=== PATIENT | male | born 1990 | race Caucasian/White ===

== ENCOUNTER 2016-11-08 23:17 | Inpatient (IN) | payer SELFPAY ==
[~2016-11-08] VITALS: Ht 185.4 cm; Wt 78.7 kg
[~2016-11-08 23:17] MED LIST: PENI500T PO; Z.0.NO CURRENT MEDS
[2016-11-08 23:19] VITALS: BP 127/69; PULSE 78; RESP 16; TEMP 98.8; O2SAT 97
[2016-11-09] VITALS (10 sets, daily range): BP systolic 90–106; BP diastolic 45–106; PULSE 68–90; RESP 16–18; TEMP 96.9–98.2; O2SAT 94–98
[2016-11-09] MEDS ORDERED: SODIUM CHLOR 0.9% 1000 ML INJ 1,000 ML IV ONE ×2 (00:28→02:30)
[2016-11-09] MEDS ORDERED: ONDANSETRON HCL 4 MG/2 ML VIAL IV PUSH ONE (00:30)
[2016-11-09] MEDS ORDERED: SODIUM CHLORIDE 0.9% FLUSH 10 ML FLUSH IVF PRN ×2 (00:30→03:00)
--- NOTE | 2016-11-09 00:52 | RADRPT ---
EXAM DATE/TIME: 11/09/2016 00:31 [facility] COMPARISON: No previous studies available for comparison. INDICATIONS : [place]. MEDICAL HISTORY : None. SURGICAL HISTORY : None. ENCOUNTER: Initial ACUITY: 1 day PAIN SCORE: 0/10 LOCATION: Bilateral chest FINDINGS: A single view of the chest demonstrates the lungs to be symmetrically aerated without evidence of mas s, infiltrate or effusion. The cardiomediastinal contours are unremarkable. Osseous structures are intact. CONCLUSION: No acute disease. Kris Carbajal MD on November 09, 2016 at 0:50 Board Certified Radiologist. This report was verified electronically.
[2016-11-09 01:07] LABS: AUTOMATED NEUTROPHIL # 14.3 TH/MM3 (1.8-7.7); BASOPHIL % 0.2 % (0.0-2.0); HEMATOCRIT 56.7 % (39.0-51.0); HEMO FLAGS DIFF FINAL; LYMPHOCYTE # 0.8 TH/MM3 (1.0-4.8); MEAN CORPUSCULAR HEMOGLOBIN 29.2 PG (27.0-34.0); MONO % 4.1 % (0.0-8.0); NEUT % 90.7 % (16.0-70.0); PLATELET COUNT 292 TH/MM3 (150-450); RED BLOOD COUNT 6.59 MIL/MM3 (4.50-5.90); RED CELL DISTRIBUTION WIDTH 13.4 % (11.6-17.2); WHITE BLOOD COUNT 15.8 TH/MM3 (4.0-11.0)
[2016-11-09 01:17] LABS: BACTERIA, URINE RARE /hpf; BLOOD, URINE SMALL (NEG); COMMENT (UR) CULTURE INDICATED; CULTURE IF INDICATED CULTURE INDICATED; GLUCOSE,URINE TRACE mg/dL (NEG); GRANULAR CAST, URINE 26 /lpf; HYALINE CAST, URINE 81 /lpf (RARE); KETONE, URINE TRACE mg/dL (NEG); MUCUS URINE FEW /lpf (OCC); NITRITE,URINE NEG (NEG); RENAL EPITHELIAL CELLS <1 /hpf; SQUAMOUS EPITHELIAL CELL URINE 2 /hpf (0-5); TRANSITIONAL EPI CELLS, URINE 1 /hpf; URINE COLOR YELLOW (YELLW/STRAW); WAXY CAST, URINE 4 /lpf
[2016-11-09 01:33] LABS: ALT (GPT) 47 U/L (12-78); ANION GAP 16 MEQ/L (5-15); AST (GOT) 65 U/L (15-37); BICARBONATE 24.1 MEQ/L (21.0-32.0); BLOOD UREA NITROGEN 32 MG/DL (7-18); CHLORIDE 95 MEQ/L (98-107); GLOMERULAR FILTRATION RATE 16 ML/MIN (>89); POTASSIUM 4.2 MEQ/L (3.5-5.1); SODIUM (NA) 135 MEQ/L (136-145)
[2016-11-09 01:35] LABS: ALKALINE PHOSPHATASE 81 U/L (45-117); TOTAL BILIRUBIN ADULT 0.9 MG/DL (0.2-1.0)
[2016-11-09] MEDS ORDERED: NALOXONE HCL 0.4 MG/ML AMP IV PUSH PRN (03:00)
[2016-11-09] MEDS ORDERED: SODIUM CHLORIDE 0.9% FLUSH 10 ML FLUSH IV FLUSH PRN (03:00)
--- NOTE | 2016-11-09 03:03 | RADRPT ---
EXAM DATE/TIME: 11/09/2016 02:38 [facility] COMPARISON: CT ABDOMEN & PELVIS W/O CONTRAST, June 06, 2010, 20:14. INDICATIONS : Vomiting today. ORAL CONTRAST: No oral contrast ingested. RADIATION DOSE: 6.67 CTDIvol (mGy) MEDICAL HISTORY : Renal calculi. Asthma. SURGICAL HISTORY : None. ENCOUNTER: Initial ACUITY: 1 day PAIN SCALE: 0/10 LOCATION: Bilateral abdomen TECHNIQUE: Volumetric scanning of the abdomen and pelvis was performed. Using automated exposure control and ad justment of the mA and/or kV according to patient size, radiation dose was kept as low as reasonably achievable to obtain optimal diagnostic quality images. DICOM format image data is available electro nically for review and comparison. FINDINGS: Lung bases are clear. No acute findings in the liver and spleen. Stable calcifications compared to 20 11. Adrenals, and kidneys and pancreas demonstrate no acute findings. No calcified gallstones. [place] h mildly distended. No free fluid or free air. No bowel obstruction. No adenopathy. Appendix appears normal. CONCLUSION: 1. No acute findings. Remote granulomatous disease in the liver and spleen, stable. No obstruction, f ree fluid or free air. No hydronephrosis or evidence for obstructive uropathy. Kris Carbajal MD on November 09, 2016 at 2:52 Board Certified Radiologist. This report was verified electronically.
--- NOTE | 2016-11-09 03:12 | HHI.HP ---
[facility] No Primary Care Physician Admission Diagnosis luke; dehydration Diagnoses: Travel History International Travel<30 Days: No Contact w/Intl Traveler <30 Da: No Traveled to Known Affected Are: No History of Present Illness History from patient, ER physician communication, and review of medical records. Patient reported that yesterday, he went to work around 7 AM. He stated he was drinking Gatorade all through the work and starting around 10 AM, he started vomiting. He stated the vomiting was continuous and he just could not stop it. Every time he takes any sip, the drink would come back right up. He denies having any black color vomit or bright red color. He states it was whatever the color of the food or the Gatorade is. He also reports of abdominal pain but this only happens after several bouts of vomiting. This also did not last long. He reports that he got home around 1 PM as soon as he got home, he was drinking water and he also started having headaches. No documented fever. No neck rigidity. Reports of sweating a lot though. Denies any other sick contacts. Reports he did not drink and eat all day long including breakfast. His last meal was the day prior, Saturday dinner. He states he only ate homemade food on one staple dinner and lunch. Patient reports prior history of renal stones a few years ago. He has had asthma history as well. He denies any shortness of breath apart from occasional episodes after throwing up quite a bit. Apart from the above, patient denies any other constitutional symptoms in the past few days to weeks. He is generally very healthy. Specifically, he denies any chest pain/palpitations/shortness of breath/focal weakness/dizziness/ syncopal episodes. He denies any hematemesis/hematochezia/melena/hematuria. Denies any nausea/vomiting/diarrhea/urinary burning or pain on urination and a previous days. Stated his symptoms only started yesterday. 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 He reports he started this work only a few days ago. He mentions that every time he comes back from work, he does have left flank pain. He was wondering whether he strained a muscle. Review of Systems Except as stated in HPI: all other systems reviewed are Neg Past Family Social History Past Medical History asthma kidney stones Past Surgical History none Allergies: Coded Allergies: No Known Allergies (Verified , 11/08/16) Family History mom- maybe htn Social History smokes 3- 5 cigarettes a day drink etoh only once in a while smoke marijuana yesterday no iv drugs, no cocaine , nothing else Physical Exam Vital Signs Vital Signs Date Time Temp Pulse Resp B/P (MAP) Pulse Ox O2 Delivery O2 Flow Rate FiO2 11/09/16 01:02 98 Room Air 11/08/16 23:19 98.8 78 16 127/69 (88) 97 Room Air Physical Exam GENERAL: This is a well-nourished, well-developed patient, in no apparent distress. SKIN: No rashes, ecchymoses or lesions. Cool and dry. HEAD: Atraumatic. Normocephalic. No temporal or scalp tenderness. EYES:. No scleral icterus. No injection or drainage. ENT: Nose without bleeding, purulent drainage or septal hematoma. Airway patent. NECK: Trachea midline. No JVD CARDIOVASCULAR: Regular rate and rhythm without murmurs, gallops, or rubs. RESPIRATORY: Clear to auscultation. Breath sounds equal bilaterally. No wheezes , rales, or rhonchi. GASTROINTESTINAL: Abdomen soft, non-tender, nondistended. No guarding. MUSCULOSKELETAL: Extremities without clubbing, cyanosis, or edema. No calf tenderness. NEUROLOGICAL: Awake and alert. Motor and sensory grossly within normal limits. Normal speech. Laboratory Laboratory Tests Test 11/09/16 00:45 White Blood Count 15.8 Red Blood Count 6.59 Hemoglobin 19.3 Hematocrit 56.7 Mean Corpuscular Volume 86.0 Mean Corpuscular Hemoglobin 29.2 Mean Corpuscular Hemoglobin Concent 34.0 Red Cell Distribution Width 13.4 Platelet Count 292 Mean Platelet Volume 9.2 Neutrophils (%) (Auto) 90.7 Lymphocytes (%) (Auto) 5.0 Monocytes (%) (Auto) 4.1 Eosinophils (%) (Auto) 0.0 Basophils (%) (Auto) 0.2 Neutrophils # (Auto) 14.3 Lymphocytes # (Auto) 0.8 Monocytes # (Auto) 0.7 Eosinophils # (Auto) 0.0 Basophils # (Auto) 0.0 CBC Comment DIFF FINAL Differential Comment Urine Color YELLOW Urine Turbidity CLOUDY Urine pH 5.0 Urine Specific [place] 1.019 Urine Protein 30 Urine Glucose (UA) TRACE Urine Ketones TRACE Urine Occult Blood SMALL Urine Nitrite NEG Urine Bilirubin NEG Urine Urobilinogen 2.0 Urine Leukocyte Esterase TRACE Urine RBC 5 Urine WBC 10 Urine Squamous Epithelial Cells 2 Urine Transitional Epithelial Cells 1 Urine Renal Epithelial Cells <1 Urine Amorphous Sediment RARE Urine Bacteria RARE Urine Hyaline Casts 81 Urine Granular Casts 26 Urine Waxy Casts 4 Urine Mucus FEW Microscopic Urinalysis Comment CULTURE INDICATED Blood Urea Nitrogen 32 Creatinine 4.49 Random Glucose 132 Total Protein 10.2 Albumin 5.9 Calcium Level 10.6 Alkaline Phosphatase 81 Aspartate Amino Transf (AST/SGOT) 65 Alanine Aminotransferase (ALT/SGPT) 47 Total Bilirubin 0.9 Sodium Level 135 Potassium Level 4.2 Chloride Level 95 Carbon Dioxide Level 24.1 Anion Gap 16 Estimat Glomerular Filtration Rate 16 Lipase 84 Date/Time Source Procedure Growth Status 11/09/16 00:45 Urine Random Urine Urine Culture Pending Received Result Diagram: 11/09/16 0045 11/09/16 0045 Imaging Last 48 hours Impressions Chest X-Ray 11/09/16 0028 Signed Impressions: Service Date/Time: Wednesday, November 09, 2016 00:31 - CONCLUSION: No acute disease. Kris Carbajal MD Abdomen/Pelvis CT 11/09/16 0000 Signed Impressions: Service Date/Time: Wednesday, November 09, 2016 02:38 - CONCLUSION: 1. No acute findings. Remote granulomatous disease in the liver and spleen, stable. No obstruction, free fluid or free air. No hydronephrosis or evidence for obstructive uropathy. Kris Carbajal MD Caprini VTE Risk Assessment Caprini VTE Risk Assessment: Mod/High Risk (score >= 2) Caprini Risk Assessment Model Point Value = 1 Point Value = 2 Point Value = 3 Point Value = 5 Age 41-60 Minor surgery BMI > 25 kg/m2 Swollen legs Varicose veins or History of unexplained or recurrent spontaneous Oral contraceptives or hormone replacement Sepsis (< 1 month) Serious lung disease, including pneumonia (< 1 month) Abnormal pulmonary function Acute myocardial infarction Congestive heart failure (< 1 month) History of inflammatory bowel disease Medical patient at bed rest Age 61-74 Arthroscopic surgery Major open surgery (> 45 min) Laparoscopic surgery (> 45 min) Malignancy Confined to bed (> 72 hours) Immobilizing plaster cast Central venous access Age >= 75 History of VTE Family history of VTE Factor V Leiden Prothrombin [id number] Lupus anticoagulant Anticardiolipin antibodies Elevated serum homocysteine Heparin-induced thrombocytopenia Other congenital or acquired thrombophilia Stroke (< 1 month) Elective arthroplasty Hip, pelvis, or leg fracture Acute spinal cord injury (< 1 month) Prophylaxis Regimen Total Risk Factor Score Risk Level Prophylaxis Regimen 0-1 Low Early ambulation 2 Moderate Order ONE of the following: *Sequential Compression Device (SCD) *Heparin 5000 units SQ BID 3-4 Higher Order ONE of the following medications: *Heparin 5000 units SQ TID *Enoxaparin/Lovenox 40 mg SQ daily (WT < 150 kg, CrCl > 30 mL/min) *Enoxaparin/Lovenox 30 mg SQ daily (WT < 150 kg, CrCl > 10-29 mL/min) *Enoxaparin/Lovenox 30 mg SQ BID (WT < 150 kg, CrCl > 30 mL/min) AND/OR *Sequential Compression Device (SCD) 5 or more Highest Order ONE of the following medications: *Heparin 5000 units SQ TID (Preferred with Epidurals) *Enoxaparin/Lovenox 40 mg SQ daily (WT < 150 kg, CrCl > 30 mL/min) *Enoxaparin/Lovenox 30 mg SQ daily (WT < 150 kg, CrCl > 10-29 mL/min) *Enoxaparin/Lovenox 30 mg SQ BID (WT < 150 kg, CrCl > 30 mL/min) AND *Sequential Compression Device (SCD) Assessment and Plan Assessment and Plan Impression: Intractable nausea/vomiting Acute renal failure secondary to dehydration. Need to rule out rhabdomyolysis given patient's nature of his job including lifting heavy objects which she started just a few days ago. Severe dehydration Hemoconcentration secondary to dehydration Gastritis History of asthma History of renal stones Plan: Nausea control. Aggressive IV hydration. Will follow-up renal function and repeat BMP in a.m. Check CPK. Add on to blood in lab. We'll follow CBC to make sure resolution. Doubt that his leukocytosis from infectious etiology. This is hemoconcentration. CT of the abdomen without contrast was done. This is personally reviewed. There is no evidence of renal stones. No other acute pathology. If renal function does not improve with IV hydration, we will need to consider renal sono/possible nephrology consult. DVT prophylaxis with ambulation. GI prophylaxis with pantoprazole. Discussed Condition With patient, ER MD, nursing staff Physician Certification 2 Midnight Certification Type: Admission for Inpatient Services Order for Inpatient Services The services are ordered in accordance with Medicare regulations or non- Medicare payer requirements, as applicable. In the case of services not specified as inpatient-only, they are appropriately provided as inpatient services in accordance with the 2-midnight benchmark. Estimated LOS (days): 2 days is the estimated time the patient will need to remain in the hospital, assuming treatment plan goals are met and no additional complications. Post-Hospital Plan: Home Steve Thomas MD Nov 09, 2016 03:12
[2016-11-09] MEDS: SODIUM CHLOR 0.9% 1000 ML INJ 1,000 ML IV SCH ×3 (03:30→18:12)
[2016-11-09 06:52] LABS: CKMB 11.3 NG/ML (0.5-3.6)
[2016-11-09] MEDS ORDERED: SODIUM CHLORIDE 0.9% FLUSH 10 ML FLUSH IV FLUSH SCH (09:00)
[2016-11-09] MEDS: SODIUM CHLORIDE 0.9% FLUSH 10 ML FLUSH IV FLUSH SCH ×2 (09:14→22:10)
[2016-11-09 09:15] LABS: BASOPHIL # 0.1 TH/MM3 (0-0.2); BASOPHIL % 0.5 % (0.0-2.0); EOSINOPHIL % 0.1 % (0.0-4.0); HEMATOCRIT 44.1 % (39.0-51.0); HEMO FLAGS DIFF FINAL; LYMPH % 9.9 % (9.0-44.0); LYMPHOCYTE # 1.6 TH/MM3 (1.0-4.8); MEAN CELL VOLUME 86.1 FL (80.0-100.0); MEAN CORPUSCULAR HEMOGLOBIN 29.2 PG (27.0-34.0); MONO % 7.4 % (0.0-8.0); NEUT % 82.1 % (16.0-70.0); PLATELET COUNT 245 TH/MM3 (150-450); RED BLOOD COUNT 5.12 MIL/MM3 (4.50-5.90); RED CELL DISTRIBUTION WIDTH 13.2 % (11.6-17.2); WHITE BLOOD COUNT 15.8 TH/MM3 (4.0-11.0)
[2016-11-09 09:56] LABS: BICARBONATE 25.2 MEQ/L (21.0-32.0); POTASSIUM 3.4 MEQ/L (3.5-5.1)
[2016-11-09] MEDS ORDERED: PANTOPRAZOLE SOD 40 MG DELAYED RELEASE TAB PO ONE (10:30)
--- NOTE | 2016-11-09 12:03 | HHI.PR ---
Subjective Remarks Follow-up for intractable emesis and acute renal failure Patient stated that emesis has improved. He has not had any episodes since he was being treated. Patient stated that he does do a lot of lifting and is outside a lot. He stated that he drinks Gatorade and a little water. He stated that he felt he was drinking enough. Patient also uses marijuana about 3 times a week. He stated that he smokes marijuana. He stated that he has never had problems with marijuana previously causing him any abdominal issues. Objective Vitals Vital Signs Date Time Temp Pulse Resp B/P (MAP) Pulse Ox O2 Delivery O2 Flow Rate FiO2 11/09/16 08:00 97.3 79 16 97/45 (62) 94 11/09/16 04:17 90 11/09/16 04:02 96.9 90 17 104/61 (75) 95 11/09/16 03:54 11/09/16 03:20 98 21 11/09/16 01:02 98 Room Air 11/08/16 23:19 98.8 78 16 127/69 (88) 97 Room Air I/O 11/08/16 11/08/16 11/08/16 11/09/16 11/09/16 11/09/16 07:00 15:00 23:00 07:00 15:00 23:00 Intake Total 1490 ml Balance 1490 ml Intake Oral 240 ml IV Total 1250 ml # Voids 1 # Bowel Movements 0 Result Diagram: 11/09/16 0845 11/09/16 0845 Objective Remarks GENERAL: in NAD CARDIOVASCULAR: Regular rate and rhythm without murmurs, gallops, or rubs. RESPIRATORY: Breath sounds equal bilaterally. No accessory muscle use. GASTROINTESTINAL: Abdomen soft, non-tender, nondistended. Medications and IVs Current Medications Ondansetron HCl (Zofran Inj) 4 mg ONCE ONCE IV PUSH Last administered on 01:00; Start 11/09/16 at 00:30; Stop 11/09/16 at 00:31; Status DC Sodium Chloride 1,000 ml @ 1,000 mls/hr Q1H ONCE IV Last administered on 01:00; Start 11/09/16 at 00:28; Stop 11/09/16 at 01:27; Status DC Sodium Chloride (NS Flush) 2 ml UNSCH PRN IVF FLUSH AFTER USING IV ACCESS; Start 11/09/16 at 00:30; Stop 11/09/16 at 03:27; Status DC Sodium Chloride 1,000 ml @ 999 mls/hr BOLUS ONCE IV Last administered on 11/09 02:51; Start 11/09/16 at 02:30; Stop 11/09/16 at 03:30; Status DC Sodium Chloride (NS Flush) 2 ml BID IV FLUSH ; Start 11/09/16 at 09:00; Stop at 09:00; Status DC Sodium Chloride (NS Flush) 2 ml UNSCH PRN IVF FLUSH AFTER USING IV ACCESS; Start 11/09/16 at 03:00; Stop 11/09/16 at 03:27; Status DC Sodium Chloride 1,000 ml @ 150 mls/hr Q6H40M IV Last administered on 03:30; Start 11/09/16 at 02:54 Sodium Chloride (NS Flush) 2 ml UNSCH PRN IV FLUSH FLUSH AFTER USING IV ACCESS ; Start 11/09/16 at 03:00 Sodium Chloride (NS Flush) 2 ml BID IV FLUSH Last administered on 11/09/16 09: 14; Start 11/09/16 at 09:00 Naloxone HCl (Narcan Inj) 0.4 mg UNSCH PRN IV PUSH SEE LABEL COMMENTS; Start at 03:00 Influenza Virus Vaccine (Flu (Quadrivalent) Vaccine Inj) 0.5 ml ONCE ONCE IM ; Start 11/10/16 at 09:00; Stop 11/10/16 at 09:01 Pantoprazole Sodium (Protonix) 40 mg DAILY PO ; Start 11/10/16 at 09:00 Pantoprazole Sodium (Protonix) 40 mg ONCE ONCE PO ; Start 11/09/16 at 10:30; Stop 11/09/16 at 10:31; Status DC A/P Assessment and Plan 26-year-old male who presented with intractable emesis Intractable emesis -May be secondary to acute renal failure. Seemed to resolve with improvement in renal function. Can also be due to marijuana, but this has never caused him problem in the past. Educated on marijuana use and that it can cause a cyclic type of emesis and abdominal pain. -Continue with treating underlying cause since it is improving symptoms. Acute renal failure -Secondary to severe dehydration and rhabdomyolysis. -Improving. -We will increase IV fluids to 150 cc/h. -Encourage oral intake. -Continue with strict ins and outs. -Avoid nephrotoxins. -Continue to monitor creatinine. Hemoconcentration secondary to dehydration -Seemed to resolve. Abdominal pain -CT scan of abdomen negative. -Most likely secondary to continuous emesis. This seems to have resolved with improvement in emesis. -Continue to monitor. DVT prophylaxis with ambulation. GI prophylaxis with pantoprazole. Cayla Isidro MD Nov 09, 2016 12:03
[2016-11-10 00:17] VITALS: BP 90/50; PULSE 64; RESP 18; TEMP 97.2; O2SAT 97
[2016-11-10] MEDS: SODIUM CHLOR 0.9% 1000 ML INJ 1,000 ML IV SCH ×3 (00:23→12:31)
[2016-11-10 04:17] VITALS: BP 92/50; PULSE 71; RESP 17; TEMP 96.7; O2SAT 96
[2016-11-10 06:23] LABS: HEMATOCRIT 40.9 % (39.0-51.0); MEAN CELL VOLUME 87.6 FL (80.0-100.0); MEAN CORPUSCULAR HEMOGLOBIN 29.5 PG (27.0-34.0); MEAN CORPUSCULAR HGB CONC 33.7 % (32.0-36.0); PLATELET COUNT 194 TH/MM3 (150-450); RED BLOOD COUNT 4.67 MIL/MM3 (4.50-5.90); RED CELL DISTRIBUTION WIDTH 13.1 % (11.6-17.2); REVIEW FLAG FINAL
[2016-11-10 06:58] LABS: BICARBONATE 27.7 MEQ/L (21.0-32.0); POTASSIUM 4.1 MEQ/L (3.5-5.1)
[2016-11-10 08:00] VITALS: BP 96/60; PULSE 67; RESP 18; TEMP 97.3; O2SAT 97
[2016-11-10] MEDS: SODIUM CHLORIDE 0.9% FLUSH 10 ML FLUSH IV FLUSH SCH (08:26)
[2016-11-10] MEDS ORDERED: INFLUENZA VIRUS VACCINE (QUADRIVALENT) 0.5 ML SYR IM ONE (09:00)
[2016-11-10] MEDS ORDERED: PANTOPRAZOLE SOD 40 MG DELAYED RELEASE TAB PO SCH (09:00)
--- NOTE | 2016-11-10 11:11 | HHI.DCPOC ---
Discharge Care Plan Diagnosis: (1) Muscle spasm (2) Acute renal failure (ARF) (3) Rhabdomyolysis Goals to Promote Your Health * To prevent worsening of your condition and complications * To maintain your health at the optimal level Directions to Meet Your Goals Take your medications as prescribed Follow your dietary instruction Follow activity as directed Keep your appointments as scheduled Take your immunizations and boosters as scheduled If your symptoms worsen call your PCP, if no PCP go to Urgent Care Center or Emergency Room Smoking is Dangerous to Your Health. Avoid second hand smoke Call the 24-hour hour crisis hotline for domestic abuse at Cayla Isidro MD Nov 10, 2016 11:11
--- NOTE | 2016-11-10 11:11 | HHI.DS ---
Discharge Summary Admission Date Nov 09, 2016 at 02:56 Discharge Date: Nov 10, 2016 Admitting Diagnosis luke; dehydration (1) Acute renal failure (ARF) ICD Code: N17.9 - Acute kidney failure, unspecified Diagnosis: Principal (2) Rhabdomyolysis ICD Code: M62.82 - Rhabdomyolysis Diagnosis: Principal (3) Muscle spasm ICD Code: M62.838 - Other muscle spasm Diagnosis: Secondary Procedures NONE Brief History - From Admission Patient reported that yesterday, he went to work around 7 AM. He stated he was drinking Gatorade all through the work and starting around 10 AM, he started vomiting. He stated the vomiting was continuous and he just could not stop it. Every time he takes any sip, the drink would come back right up. He denies having any black color vomit or bright red color. He states it was whatever the color of the food or the Gatorade is. He also reports of abdominal pain but this only happens after several bouts of vomiting. This also did not last long. He reports that he got home around 1 PM as soon as he got home, he was drinking water and he also started having headaches. No documented fever. No neck rigidity. Reports of sweating a lot though. Denies any other sick contacts. Reports he did not drink and eat all day long including breakfast. His last meal was the day prior, Saturday dinner. He states he only ate homemade food on one staple dinner and lunch. Patient reports prior history of renal stones a few years ago. He has had asthma history as well. He denies any shortness of breath apart from occasional episodes after throwing up quite a bit. Apart from the above, patient denies any other constitutional symptoms in the past few days to weeks. He is generally very healthy. Specifically, he denies any chest pain/palpitations/shortness of breath/focal weakness/dizziness/ syncopal episodes. He denies any hematemesis/hematochezia/melena/hematuria. Denies any nausea/vomiting/diarrhea/urinary burning or pain on urination and a previous days. Stated his symptoms only started yesterday. 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 He reports he started this work only a few days ago. He mentions that every time he comes back from work, he does have left flank pain. He was wondering whether he strained a muscle. CBC/BMP: 11/10/16 0534 11/10/16 0534 Significant Findings Laboratory Tests Test 11/09/16 00:45 11/09/16 08:45 11/10/16 05:34 White Blood Count 15.8 TH/MM3 (4.0-11.0) 15.8 TH/MM3 (4.0-11.0) Red Blood Count 6.59 MIL/MM3 (4.50-5.90) Hemoglobin 19.3 GM/DL (13.0-17.0) Hematocrit 56.7 % (39.0-51.0) Neutrophils (%) (Auto) 90.7 % (16.0-70.0) 82.1 % (16.0-70.0) Lymphocytes (%) (Auto) 5.0 % (9.0-44.0) Neutrophils # (Auto) 14.3 TH/MM3 (1.8-7.7) 13.0 TH/MM3 (1.8-7.7) Lymphocytes # (Auto) 0.8 TH/MM3 (1.0-4.8) Urine Turbidity CLOUDY (CLEAR) Urine Protein 30 mg/dL (NEG-TRACE) Urine Ketones TRACE mg/dL (NEG) Urine Occult Blood SMALL (NEG) Urine Leukocyte Esterase TRACE (NEG) Urine RBC 5 /hpf (0-3) Urine WBC 10 /hpf (0-5) Urine Bacteria RARE /hpf (NONE) Urine Mucus FEW /lpf (OCC) Blood Urea Nitrogen 32 MG/DL (7-18) 30 MG/DL (7-18) 19 MG/DL (7-18) Creatinine 4.49 MG/DL (0.60-1.30) 2.28 MG/DL (0.60-1.30) Random Glucose 132 MG/DL (74-106) 127 MG/DL (74-106) Total Protein 10.2 GM/DL (6.4-8.2) Albumin 5.9 GM/DL (3.4-5.0) Calcium Level 10.6 MG/DL (8.5-10.1) 8.2 MG/DL (8.5-10.1) 7.9 MG/DL (8.5-10.1) Aspartate Amino Transf (AST/SGOT) 65 U/L (15-37) Sodium Level 135 MEQ/L (136-145) Chloride Level 95 MEQ/L (98-107) 111 MEQ/L (98-107) Anion Gap 16 MEQ/L (5-15) 4 MEQ/L (5-15) Estimat Glomerular Filtration Rate 16 ML/MIN (>89) 35 ML/MIN (>89) Total Creatine Kinase 2137 U/L (39-308) Creatine Kinase MB 11.3 NG/ML (0.5-3.6) Monocytes # (Auto) 1.2 TH/MM3 (0-0.9) Potassium Level 3.4 MEQ/L (3.5-5.1) Imaging Last Impressions Chest X-Ray 11/09/16 0028 Signed Impressions: Service Date/Time: Wednesday, November 09, 2016 00:31 - CONCLUSION: No acute disease. Kris Carbajal MD Abdomen/Pelvis CT 11/09/16 0000 Signed Impressions: Service Date/Time: Wednesday, November 09, 2016 02:38 - CONCLUSION: 1. No acute findings. Remote granulomatous disease in the liver and spleen, stable. No obstruction, free fluid or free air. No hydronephrosis or evidence for obstructive uropathy. Kris Carbajal MD PE at Discharge GENERAL: in NAD CARDIOVASCULAR: Regular rate and rhythm without murmurs, gallops, or rubs. RESPIRATORY: Breath sounds equal bilaterally. No accessory muscle use. GASTROINTESTINAL: Abdomen soft, non-tender, nondistended. Pt update on day of discharge Follow-up for acute renal failure intractable emesis Patient stated he is feeling well. Deny any nausea vomiting. Denies any abdominal pain. He did have some muscle pain on his left side. Otherwise he has no other complaints. Hospital Course 26-year-old male who presented with intractable emesis Intractable emesis -May be secondary to acute renal failure. Seemed to resolve with improvement in renal function. Can also be due to marijuana, but this has never caused him problem in the past. Educated on marijuana use and that it can cause a cyclic type of emesis and abdominal pain. -Continue with treating underlying cause since it is improving symptoms. This resolved quickly. Acute renal failure -Secondary to severe dehydration and rhabdomyolysis. -Resolved after aggressive IV fluid resuscitation. Hemoconcentration secondary to dehydration -Resolved after given IV fluids. Abdominal pain -CT scan of abdomen negative. -Most likely secondary to continuous emesis. This seems to have resolved with improvement in emesis. -Continue to monitor. Muscle spasms -Patient okay use heating pad. Pt Condition on Discharge: Good Discharge Disposition: Discharge Home Discharge Time: <= 30 minutes Discharge Instructions DIET: Follow Instructions for: As Tolerated, No Restrictions Additional Diet Instructions: remember to keep hydrated with water especially when working outstide. Activities you can perform: Regular-No Restrictions Follow up Referrals: PCP Follow-up - 1 Week Medication Profile: No Active Prescriptions or Reported Meds Cayla Isidro MD Nov 10, 2016 11:11
--- NOTE | 2016-11-22 05:28 | PD ---
HPI Chief Complaint: GI Complaint Time Seen by Provider: 00:28 Travel History International Travel<30 days: No Contact w/Intl Traveler<30days: No Traveled to known affect area: No History of Present Illness HPI 26-year-old male presents to the emergency department for evaluation of dehydration. Patient states symptoms have worsened over the past day. Patient denies fever or chills. Patient does complain of myalgias and arthralgias. Patient states multiple episodes of vomiting and inability to tolerate any oral hydration. Patient had been drinking Gatorade heavily. No hematemesis no coffee-ground emesis no melena no hematochezia no abdominal pain except some mild discomfort with vomiting. Patient has prior history of asthma and kidney stones. Patient does smoke cigarettes. Rarely drinks alcohol. Patient denies other concerns or complaints and rates pain as minimal. No dietary indiscretion no well water ingestion or foreign travel. PFSH Past Medical History Narrative Medical Asthma kidney stones migraines tobacco use alcohol use marijuana use nursing notes reviewed Arthritis: No Asthma: Yes Autoimmune Disease: No Anxiety: No Depression: No Heart Rhythm Problems: No Cancer: No Cardiovascular Problems: No High Cholesterol: No Chemotherapy: No Chest Pain: No Congestive Heart Failure: No COPD: No Cerebrovascular Accident: No Diabetes: No Patient Takes Glucophage: No Diminished Hearing: No Endocrine: No GERD: No Genitourinary: Yes Hiatal Hernia: No Immune Disorder: No Kidney Stones: Yes Musculoskeletal: Yes Neurologic: Yes Psychiatric: No Reproductive: No Respiratory: Yes Immunizations Current: Yes Migraines: Yes Radiation Therapy: No Renal Failure: No Seizures: No Sickle Cell Disease: No Sleep Apnea: No Thyroid Disease: No Ulcer: No ?: Not Past Surgical History Abdominal Surgery: No AICD: No Arteriovenous Shunt: No Cardiac Surgery: No Ear Surgery: No Endocrine Surgery: No Eye Surgery: No Genitourinary Surgery: No Gynecologic Surgery: No Insulin Pump: No Joint Replacement: No Oral Surgery: No Pacemaker: No Thoracic Surgery: No Social History Alcohol Use: Yes (OCCASIONALLY) Tobacco Use: Yes (5 CIGARETTES A DAY) Substance Use: Yes (MARIJUANA) Allergies-Medications (Allergen,Severity, Reaction): Coded Allergies: No Known Allergies (Verified , 11/08/16) Reported Meds & Prescriptions Reported Meds & Active Scripts Active No Active Prescriptions or Reported Medications Review of Systems Except as stated in HPI: all other systems reviewed are Neg General / Constitutional: No: Fever, Chills HENT: No: Congestion Cardiovascular: No: Chest Pain or Discomfort Respiratory: No: Shortness of Breath Gastrointestinal: Positive: Nausea, Vomiting, No: Abdominal Pain Genitourinary: No: Flank Pain Musculoskeletal: No: Limited ROM Skin: No Rash Neurologic: No: Weakness Psychiatric: No: Anxiety Hematologic/Lymphatic: No: Lymph Node Enlargement Physical Exam Narrative GENERAL: Well-developed well-nourished male in no acute distress no respiratory distress SKIN: Warm and dry. HEAD: Normocephalic. EYES: No scleral icterus. No injection or drainage. NECK: Supple, trachea midline. No JVD or lymphadenopathy. CARDIOVASCULAR: Regular rate and rhythm without murmurs, gallops, or rubs. RESPIRATORY: Breath sounds equal bilaterally. No accessory muscle use. GASTROINTESTINAL: Abdomen soft, non-tender, nondistended. MUSCULOSKELETAL: No cyanosis, or edema. BACK: Nontender without obvious deformity. No CVA tenderness. Data Data Orders Orders Complete Blood Count With Diff (11/09/16 00:28) Comprehensive Metabolic Panel (11/09/16 00:28) Urinalysis - C+S If Indicated (11/09/16 00:28) Lipase (11/09/16 00:28) Iv Access Insert/Monitor (11/09/16 00:28) Ecg Monitoring (11/09/16 00:28) Oximetry (11/09/16 00:28) Ondansetron Inj (Zofran Inj) (11/09/16 00:30) Sodium Chlor 0.9% 1000 Ml Inj (Ns 1000 M (11/09/16 00:28) Sodium Chloride 0.9% Flush (Ns Flush) (11/09/16 00:30) Chest, Single Ap (11/09/16 00:28) Urine Culture (11/09/16 00:45) Ct Abd/Pel W/O Iv Contrast (11/09/16 ) Sodium Chlor 0.9% 1000 Ml Inj (Ns 1000 M (11/09/16 02:30) Admit Order (Ed Use Only) (11/09/16 ) ^ Saline Lock (11/09/16 02:54) Resp Oxygen [place] C Titrat 1-4 L (11/09/16 ) Notify Dr: Other (11/09/16 02:54) Sodium Chloride 0.9% Flush (Ns Flush) (11/09/16 09:00) Sodium Chloride 0.9% Flush (Ns Flush) (11/09/16 03:00) Admit To Inpatient (11/09/16 ) Vital Signs (Adult) Q4H (11/09/16 02:54) Activity Oob With Assistance (11/09/16 02:54) Soft Drink Powder Mixer / Telemetry .CONTINUOUS (11/09/16 02:54) Diet Heart Healthy (11/09/16 Breakfast) Sodium Chlor 0.9% 1000 Ml Inj (Ns 1000 M (11/09/16 02:54) Sodium Chloride 0.9% Flush (Ns Flush) (11/09/16 03:00) Sodium Chloride 0.9% Flush (Ns Flush) (11/09/16 09:00) Basic Metabolic Panel (Bmp) (11/09/16 06:00) Complete Blood Count With Diff (11/09/16 06:00) Naloxone Inj (Narcan Inj) (11/09/16 03:00) Inpatient Certification (11/09/16 ) Labs Laboratory Tests Test 11/09/16 00:45 White Blood Count 15.8 TH/MM3 Red Blood Count 6.59 MIL/MM3 Hemoglobin 19.3 GM/DL Hematocrit 56.7 % Mean Corpuscular Volume 86.0 FL Mean Corpuscular Hemoglobin 29.2 PG Mean Corpuscular Hemoglobin Concent 34.0 % Red Cell Distribution Width 13.4 % Platelet Count 292 TH/MM3 Mean Platelet Volume 9.2 FL Neutrophils (%) (Auto) 90.7 % Lymphocytes (%) (Auto) 5.0 % Monocytes (%) (Auto) 4.1 % Eosinophils (%) (Auto) 0.0 % Basophils (%) (Auto) 0.2 % Neutrophils # (Auto) 14.3 TH/MM3 Lymphocytes # (Auto) 0.8 TH/MM3 Monocytes # (Auto) 0.7 TH/MM3 Eosinophils # (Auto) 0.0 TH/MM3 Basophils # (Auto) 0.0 TH/MM3 CBC Comment DIFF FINAL Differential Comment Urine Color YELLOW Urine Turbidity CLOUDY Urine pH 5.0 Urine Specific [place] 1.019 Urine Protein 30 mg/dL Urine Glucose (UA) TRACE mg/dL Urine Ketones TRACE mg/dL Urine Occult Blood SMALL Urine Nitrite NEG Urine Bilirubin NEG Urine Urobilinogen 2.0 MG/DL Urine Leukocyte Esterase TRACE Urine RBC 5 /hpf Urine WBC 10 /hpf Urine Squamous Epithelial Cells 2 /hpf Urine Transitional Epithelial Cells 1 /hpf Urine Renal Epithelial Cells <1 /hpf Urine Amorphous Sediment RARE Urine Bacteria RARE /hpf Urine Hyaline Casts 81 /lpf Urine Granular Casts 26 /lpf Urine Waxy Casts 4 /lpf Urine Mucus FEW /lpf Microscopic Urinalysis Comment CULTURE INDICATED Blood Urea Nitrogen 32 MG/DL Creatinine 4.49 MG/DL Random Glucose 132 MG/DL Total Protein 10.2 GM/DL Albumin 5.9 GM/DL Calcium Level 10.6 MG/DL Alkaline Phosphatase 81 U/L Aspartate Amino Transf (AST/SGOT) 65 U/L Alanine Aminotransferase (ALT/SGPT) 47 U/L Total Bilirubin 0.9 MG/DL Sodium Level 135 MEQ/L Potassium Level 4.2 MEQ/L Chloride Level 95 MEQ/L Carbon Dioxide Level 24.1 MEQ/L Anion Gap 16 MEQ/L Estimat Glomerular Filtration Rate 16 ML/MIN Total Creatine Kinase 2137 U/L Creatine Kinase MB 11.3 NG/ML Creatine Kinase MB % 0.5 % Lipase 84 U/L [facility] Medical Decision Making Medical Screen Exam Complete: Yes Emergency Medical Condition: Yes Medical Record Reviewed: Yes Interpretation(s) cbc: Leukocytosis white count 15,800 hemoconcentration hemoglobin 19.390% neutrophils CK total 2137 elevated; MB percent 0.5% not elevated Metabolic panel acute renal insufficiency/renal failure BUN 32 his creatinine 4.49 normal bicarbonate with elevated anion gap Urinalysis positive for leukocytes Estrace white blood cells and red blood cells Differential Diagnosis Dehydration viral syndrome food borne illness electrolyte Disturbance renal insufficiency rhabdomyolysis Narrative Course Patient placed on monitor IV access obtained specimens collected and sent for resulting agent administered IV fluid bolus CBC is automated differential white count 15,800 with hemoglobin of 19.3 and automated differential 90% neutrophils Metabolic panel is remarkable for normal range bicarbonate 24 however patient's anion gap is elevated patient also demonstrates acute renal insufficiency with a BUN of 32 and a creatinine of 4.49 CK total is 2137 with MB % of 0.5% Urinalysis shows blood and leukocyte esterase At this point time is concerning for Patient to be in acute renal failure acute renal insufficiency with dehydration and possible rhabdomyolysis therefore patient will be admitted for ongoing fluid hydration and monitoring of CKs to see if values are responding to IV fluid hydration. Physician Communication Physician Communication discussed with [facility] for admission Diagnosis Primary Impression: MAYELA (acute kidney injury) Additional Impression: Rhabdomyolysis Patient Instructions: General Instructions, Dehydration (DC), Heat Exhaustion ( DC), Home Safety (GEN) Scripts No Active Prescriptions or Reported Meds Aleisha Landin MD Nov 22, 2016 05:28
== END 2016-11-10 13:41 | disposition home or self-care (01) | DRG 641 ==
LOC: NEPC 23:17 → NEDA 11-09 02:56 → N06A 11-09 03:58
PROVIDERS: ADMIT Family Medicine; ATTEND Family Medicine
DX: E86.0 Dehydration (principal); N17.9 Acute kidney failure, unspecified; M62.82 Rhabdomyolysis; K29.70 Gastritis, unspecified, without bleeding; F17.210 Nicotine dependence, cigarettes, uncomplicated; F12.90 Cannabis use, unspecified, uncomplicated; J45.909 Unspecified asthma, uncomplicated; Z87.442 Personal history of urinary calculi
CPT/HCPCS: 71010; 74176; 80048; 80053; 81001; 82550; 82552; 83690; 85025; 85027; 87086; 90686; 96361; 96374; J2405; J7030; Q2038

== ENCOUNTER 2016-11-22 20:55 | Inpatient (IN) | payer SELFPAY ==
[~2016-11-22] VITALS: Ht 185.4 cm; Wt 78.3 kg
[2016-11-22 21:03] VITALS: BP 112/67; PULSE 90; RESP 15; TEMP 98.2; O2SAT 99
[2016-11-22] MEDS ORDERED: ONDANSETRON HCL 4 MG/2 ML VIAL IVP ONE (23:30)
[2016-11-22] MEDS ORDERED: SODIUM CHLOR 0.9% 1000 ML INJ 1,000 ML IV SCH (23:30)
[2016-11-22] MEDS ORDERED: FAMOTIDINE 20 MG/2 ML VIAL IV PUSH ONE (23:30)
[2016-11-22] MEDS ORDERED: SODIUM CHLORIDE 0.9% FLUSH 10 ML FLUSH IV FLUSH PRN (23:30)
[2016-11-22 23:33] VITALS: RESP 16
--- NOTE | 2016-11-22 23:33 | PD ---
HPI Chief Complaint: GI Complaint Time Seen by Provider: 23:26 Travel History International Travel<30 days: No Contact w/Intl Traveler<30days: No Traveled to known affect area: No History of Present Illness HPI 26-year-old male complains of abdominal cramping with nausea vomiting. Patient states the symptoms started this evening. Patient states that he has abdominal cramping with nausea vomiting. Patient denies any headache. Patient denies any chest pain or shortness of breath. Patient denies any dysuria or frequency. Patient denies any fever chills. Patient was admitted a month ago for acute renal failure secondary to rhabdomyolysis. Patient has been doing well since then. PFSH Past Medical History Arthritis: No Asthma: Yes Autoimmune Disease: No Anxiety: No Depression: No Heart Rhythm Problems: No Cancer: No Cardiovascular Problems: No High Cholesterol: No Chemotherapy: No Chest Pain: No Congestive Heart Failure: No COPD: No Cerebrovascular Accident: No Diabetes: No Diminished Hearing: No Endocrine: No Gastrointestinal Disorders: No GERD: No Genitourinary: Yes Headaches: No Hiatal Hernia: No Heparin Induced Thrombocytopen: No Hypertension: No Immune Disorder: No Implanted Vascular Access Dvce: No Kidney Stones: Yes Musculoskeletal: Yes Neurologic: Yes Psychiatric: No Reproductive: No Respiratory: Yes (ASTHMA) Immunizations Current: Yes Migraines: Yes Radiation Therapy: No Renal Failure: No Seizures: No Sickle Cell Disease: No Sleep Apnea: No Thyroid Disease: No Ulcer: No Tetanus Vaccination: Unknown Influenza Vaccination: Yes Past Surgical History Abdominal Surgery: No AICD: No Arteriovenous Shunt: No Cardiac Surgery: No Ear Surgery: No Endocrine Surgery: No Eye Surgery: No Genitourinary Surgery: No Gynecologic Surgery: No Insulin Pump: No Joint Replacement: No Neurologic Surgery: No Oral Surgery: No Pacemaker: No Thoracic Surgery: No Other Surgery: No Social History Alcohol Use: Yes (OCCASIONALLY) Tobacco Use: Yes (5 CIGARETTES A DAY) Substance Use: Yes (MARIJUANA) Allergies-Medications (Allergen,Severity, Reaction): Coded Allergies: No Known Allergies (Verified , 11/22/16) Reported Meds & Prescriptions Reported Meds & Active Scripts Active No Active Prescriptions or Reported Medications Review of Systems General / Constitutional: No: Fever Eyes: No: Visual changes HENT: No: Headaches Cardiovascular: No: Chest Pain or Discomfort Respiratory: No: Shortness of Breath Gastrointestinal: Positive: Nausea, Vomiting, Abdominal Pain Genitourinary: No: Dysuria Musculoskeletal: No: Pain Skin: No Rash Neurologic: No: Weakness Psychiatric: No: Depression Endocrine: No: Polydipsia Hematologic/Lymphatic: No: Easy Bruising Physical Exam Narrative GENERAL: Well-nourished, well-developed patient. SKIN: Focused skin assessment warm/dry. HEAD: Normocephalic. EYES: No scleral icterus. No injection or drainage. NECK: Supple, trachea midline. No JVD or lymphadenopathy. CARDIOVASCULAR: Regular rate and rhythm without murmurs, gallops, or rubs. RESPIRATORY: Breath sounds equal bilaterally. No accessory muscle use. GASTROINTESTINAL: Abdomen soft, nondistended. Mild tenderness on palpation epigastric area. No rebound tenderness. No mass. MUSCULOSKELETAL: No cyanosis, or edema. BACK: Nontender without obvious deformity. No CVA tenderness. Neurologic exam normal. Data Data Last Documented VS Vital Signs Date Time Temp Pulse Resp B/P (MAP) Pulse Ox O2 Delivery O2 Flow Rate FiO2 11/22/16 23:33 16 11/22/16 21:03 98.2 90 99 Room Air Orders Orders Complete Blood Count With Diff (11/22/16 23:30) Comprehensive Metabolic Panel (11/22/16 23:30) Lipase (11/22/16 23:30) Iv Access Insert/Monitor (11/22/16:30) Ecg Monitoring (11/22/16:30) Oximetry (11/22/16:30) Ondansetron Inj (Zofran Inj) (11/22/16 23:30) Sodium Chlor 0.9% 1000 Ml Inj (Ns 1000 M (11/22/16 23:30) Sodium Chloride 0.9% Flush (Ns Flush) (11/22/16 23:30) Famotidine Inj (Pepcid Inj) (11/22/16 23:30) Sodium Chlor 0.9% 1000 Ml Inj (Ns 1000 M (11/23/16 01:00) Creatine Kinase (Cpk) (11/22/16 23:30) CKMB (11/22/16 23:30) CKMB% (11/22/16 23:30) Ct Abd/Pel W/O Iv Contrast (11/23/16 01:30) Labs Laboratory Tests Test 11/22/16:30 White Blood Count 16.5 TH/MM3 Red Blood Count 6.18 MIL/MM3 Hemoglobin 18.2 GM/DL Hematocrit 53.6 % Mean Corpuscular Volume 86.7 FL Mean Corpuscular Hemoglobin 29.4 PG Mean Corpuscular Hemoglobin Concent 33.9 % Red Cell Distribution Width 13.1 % Platelet Count 364 TH/MM3 Mean Platelet Volume 9.0 FL Neutrophils (%) (Auto) 85.4 % Lymphocytes (%) (Auto) 8.8 % Monocytes (%) (Auto) 5.3 % Eosinophils (%) (Auto) 0.1 % Basophils (%) (Auto) 0.4 % Neutrophils # (Auto) 14.1 TH/MM3 Lymphocytes # (Auto) 1.5 TH/MM3 Monocytes # (Auto) 0.9 TH/MM3 Eosinophils # (Auto) 0.0 TH/MM3 Basophils # (Auto) 0.1 TH/MM3 CBC Comment DIFF FINAL Differential Comment Blood Urea Nitrogen 44 MG/DL Creatinine 3.14 MG/DL Random Glucose 125 MG/DL Total Protein 9.5 GM/DL Albumin 5.6 GM/DL Calcium Level 10.7 MG/DL Alkaline Phosphatase 73 U/L Aspartate Amino Transf (AST/SGOT) 28 U/L Alanine Aminotransferase (ALT/SGPT) 33 U/L Total Bilirubin 0.8 MG/DL Sodium Level 132 MEQ/L Potassium Level 4.7 MEQ/L Chloride Level 96 MEQ/L Carbon Dioxide Level 26.3 MEQ/L Anion Gap 10 MEQ/L Estimat Glomerular Filtration Rate 24 ML/MIN Total Creatine Kinase 380 U/L Creatine Kinase MB 2.7 NG/ML Creatine Kinase MB % 0.7 % Lipase 86 U/L [facility] Medical Decision Making Medical Screen Exam Complete: Yes Emergency Medical Condition: Yes Interpretation(s) 12:55 AM. CBC WBC 16.5. Hemoglobin 18.2 hematocrit 53.6. 85 neutrophil. Sodium 132. BUN 44. Creatinine 3.14. GFR 24. Calcium 10.7. 2:[address] scan abdomen pelvis negative for acute pathology. Total CK 380. Differential Diagnosis Differential diagnosis including gastritis, PUD, hepatitis, cholecystitis, colitis, UTI, pyelonephritis, nephrolithiasis, obstruction. Narrative Course 26-year-old male complains of nausea vomiting abdominal cramping. Normal saline solution 1 L IV bolus. Zofran 4 mg IV. Pepcid 20 mg IV. Repeated normal saline solution 1 L bolus. Normal saline solution 1 25 cc an hour. Diagnosis Primary Impression: MAYELA (acute kidney injury) Additional Impression: Gastroenteritis Admitting Information Admitting Physician Requests: Admit Scripts No Active Prescriptions or Reported Meds Eloy Cheng MD Nov 22, 2016 23:33
[2016-11-22 23:47] LABS: AUTOMATED NEUTROPHIL # 14.1 TH/MM3 (1.8-7.7); BASOPHIL # 0.1 TH/MM3 (0-0.2); BASOPHIL % 0.4 % (0.0-2.0); EOSINOPHIL % 0.1 % (0.0-4.0); HEMATOCRIT 53.6 % (39.0-51.0); HEMO FLAGS DIFF FINAL; LYMPH % 8.8 % (9.0-44.0); LYMPHOCYTE # 1.5 TH/MM3 (1.0-4.8); MEAN CELL VOLUME 86.7 FL (80.0-100.0); MEAN CORPUSCULAR HEMOGLOBIN 29.4 PG (27.0-34.0); MEAN CORPUSCULAR HGB CONC 33.9 % (32.0-36.0); MONO % 5.3 % (0.0-8.0); NEUT % 85.4 % (16.0-70.0); PLATELET COUNT 364 TH/MM3 (150-450); RED BLOOD COUNT 6.18 MIL/MM3 (4.50-5.90); RED CELL DISTRIBUTION WIDTH 13.1 % (11.6-17.2); WHITE BLOOD COUNT 16.5 TH/MM3 (4.0-11.0)
[2016-11-23 00:12] LABS: ANION GAP 10 MEQ/L (5-15); AST (GOT) 28 U/L (15-37); BICARBONATE 26.3 MEQ/L (21.0-32.0); BLOOD UREA NITROGEN 44 MG/DL (7-18); CHLORIDE 96 MEQ/L (98-107); GLOMERULAR FILTRATION RATE 24 ML/MIN (>89); POTASSIUM 4.7 MEQ/L (3.5-5.1); SODIUM (NA) 132 MEQ/L (136-145)
[2016-11-23 00:13] LABS: ALT (GPT) 33 U/L (12-78)
[2016-11-23 00:15] LABS: ALKALINE PHOSPHATASE 73 U/L (45-117); TOTAL BILIRUBIN ADULT 0.8 MG/DL (0.2-1.0)
[2016-11-23] MEDS ORDERED: SODIUM CHLOR 0.9% 1000 ML INJ 1,000 ML IV ONE (01:00)
[2016-11-23 01:27] LABS: CREATINE KINASE 380 U/L (39-308)
[2016-11-23 01:47] LABS: CKMB 2.7 NG/ML (0.5-3.6)
--- NOTE | 2016-11-23 02:13 | RADRPT ---
EXAM DATE/TIME: 11/23/2016 01:46 [facility] COMPARISON: CT ABDOMEN & PELVIS W/O CONTRAST, November 09, 2016, 2:38. INDICATIONS : Diffuse abdominal pain with nausea and vomiting. ORAL CONTRAST: No oral contrast ingested. RADIATION DOSE: 6.64 CTDIvol (mGy) MEDICAL HISTORY : Renal calculi. Renal failure, acute. SURGICAL HISTORY : None. ENCOUNTER: Initial ACUITY: 1 day PAIN SCALE: 4/10 LOCATION: All quadrants. TECHNIQUE: Volumetric scanning of the abdomen and pelvis was performed. Using automated exposure control and ad justment of the mA and/or kV according to patient size, radiation dose was kept as low as reasonably achievable to obtain optimal diagnostic quality images. DICOM format image data is available electro nically for review and comparison. FINDINGS: Lung bases are clear. No acute findings in the liver, spleen, adrenals, kidneys or pancreas. Remote granulomatous disease i n the liver and spleen. No calcified gallstones or biliary ductal dilatation. There is no free fluid. No free air. No bowel obstruction. No adenopathy. CONCLUSION: 1. No acute findings abdomen pelvic CT. No significant change from November 09. Kris Carbajal MD on November 23, 2016 at 2:08 Board Certified Radiologist. This report was verified electronically.
[2016-11-23] MEDS ORDERED: SODIUM CHLOR 0.9% 1000 ML INJ 1,000 ML IV SCH (02:45)
[2016-11-23] MEDS ORDERED: SODIUM CHLORIDE 0.9% FLUSH 10 ML FLUSH IV FLUSH PRN (03:00)
[2016-11-23] MEDS ORDERED: ONDANSETRON HCL 4 MG/2 ML VIAL IVP PRN (03:00)
[2016-11-23] MEDS ORDERED: NALOXONE HCL 0.4 MG/ML AMP IV PUSH PRN (03:00)
[2016-11-23] MEDS: SODIUM CHLOR 0.9% 1000 ML INJ 1,000 ML IV SCH ×3 (03:15→20:55)
[2016-11-23 03:42] VITALS: BP 107/58; PULSE 72; RESP 18; TEMP 97.7; O2SAT 98
--- NOTE | 2016-11-23 04:23 | HHI.PR ---
Subjective Remarks Mr. Keen is a 26-year-old male. He came into the ER secondary to hyperemesis and abdominal pain. He works construction, outdoors, in the heat. He has a previous episode 2 weeks ago with nausea and vomiting and pain which showed 2 renal failure and rhabdomyolysis. Similar pattern this time with evidence of acute renal failure and a more mild rhabdomyolysis. His baseline medical conditions are asthma and past kidney stone other than this he is healthy at baseline and complains of no symptoms when he is not working. However when he works out doors he he has had more mild episodes like this for he ends up getting abdominal pain and vomiting. No other complaints. He did not have episodes like this when he was a child. Objective Vital Signs Date Time Temp Pulse Resp B/P (MAP) Pulse Ox O2 Delivery O2 Flow Rate FiO2 11/23/16 03:42 97.7 72 18 107/58 (74) 98 11/23/16 03:33 11/22/16 23:33 16 11/22/16 21:03 98.2 90 15 112/67 (82) 99 Room Air I/O 11/22/16 11/22/16 11/22/16 11/23/16 11/23/16 11/23/16 07:00 15:00 23:00 07:00 15:00 23:00 Intake Total 2000 ml Balance 2000 ml Intake IV Total 2000 ml Result Diagram: 11/22/16 2330 11/22/16 2330 Objective Remarks GENERAL: NAD, A&Ox3 HEAD: Normocephalic. NECK: Supple, trachea midline. No lymphadenopathy. EYES: No scleral icterus. No injection or drainage. CARDIOVASCULAR: Regular rate and rhythm without murmurs, gallops, or rubs. RESPIRATORY: Breath sounds equal bilaterally. No accessory muscle use. GASTROINTESTINAL: Abdomen soft, non-tender, nondistended. MUSCULOSKELETAL: No cyanosis, or edema. SKIN: Warm and dry. NEURO: No focal neurological deficitis. A/P Problem List: (1) MAYELA (acute kidney injury) ICD Code: N17.9 - Acute kidney failure, unspecified Status: Acute (2) Gastroenteritis ICD Code: K52.9 - Noninfective gastroenteritis and colitis, unspecified Status: Acute (3) Rhabdomyolysis ICD Code: M62.82 - Rhabdomyolysis (4) Acute renal failure (ARF) ICD Code: N17.9 - Acute kidney failure, unspecified Assessment and Plan Assessment and plan 26-year-old male admitted secondary to acute renal failure and rhabdomyolysis ( recurrent). Acute renal failure Dehydration Rhabdomyolysis This may represent physiologic disturbance Granulomatous findings on prior CT could be contributory Screen for autoimmunity Screen for physiologic imbalance Consult nephrology IV hydration Follow renal function Asthma No exacerbation History of nephrolithiasis May represent predisposition to precipitation from physiologic disturbances DVT prophylaxis SCDs Emre Power MD Nov 23, 2016 04:23
[2016-11-23 07:16] VITALS: BP 99/55; PULSE 72; RESP 19; TEMP 97.8; O2SAT 98
[2016-11-23] MEDS: SODIUM CHLORIDE 0.9% FLUSH 10 ML FLUSH IV FLUSH SCH ×2 (09:00→20:55)
[2016-11-23 10:05] LABS: AUTOMATED NEUTROPHIL # 8.2 TH/MM3 (1.8-7.7); BASOPHIL # 0.1 TH/MM3 (0-0.2); BASOPHIL % 0.5 % (0.0-2.0); EOSINOPHIL # 0.2 TH/MM3 (0-0.4); EOSINOPHIL % 1.6 % (0.0-4.0); HEMATOCRIT 44.8 % (39.0-51.0); HEMO FLAGS DIFF FINAL; LYMPH % 18.2 % (9.0-44.0); LYMPHOCYTE # 2.1 TH/MM3 (1.0-4.8); MEAN CELL VOLUME 87.1 FL (80.0-100.0); MEAN CORPUSCULAR HEMOGLOBIN 29.4 PG (27.0-34.0); MEAN CORPUSCULAR HGB CONC 33.8 % (32.0-36.0); MONO % 7.7 % (0.0-8.0); PLATELET COUNT 278 TH/MM3 (150-450); RED BLOOD COUNT 5.14 MIL/MM3 (4.50-5.90); RED CELL DISTRIBUTION WIDTH 13.3 % (11.6-17.2); WHITE BLOOD COUNT 11.3 TH/MM3 (4.0-11.0)
--- NOTE | 2016-11-23 10:32 | RADRPT ---
EXAM DATE/TIME: 11/23/2016 10:04 [facility] COMPARISON: CT ABDOMEN & PELVIS W/O CONTRAST, November 23, 2016, 1:46. INDICATIONS : Increased BUN/creatinine. MEDICAL HISTORY : Renal calculi. Migraines. Asthma. Dyspnea. Substance use. SURGICAL HISTORY : None. ENCOUNTER: Initial ACUITY: 1 day PAIN SCORE: 0/10 LOCATION: Bilateral flank MEASUREMENTS: RIGHT KIDNEY: 12.3 x 5.8 x 4.5 cm LEFT KIDNEY: 11.1 x 4.9 x 4.6 cm FINDINGS: RIGHT KIDNEY: Renal cortex is normal in thickness. Mildly echogenic No hydronephrosis, stone, or mass. LEFT KIDNEY: Renal cortex is normal in thickness Mildly echogenic No hydronephrosis, stone, or mass. BLADDER: Within normal limits given the degree of distension. Prominent prostate CONCLUSION: Negative for mass or hydronephrosis. Mildly echogenic kidneys suggesting chronic dis ease. Prominent prostate. Peter Workman MD FACR on November 23, 2016 at 10:29 Board Certified Radiologist. This report was verified electronically.
[2016-11-23 10:41] LABS: POTASSIUM 3.4 MEQ/L (3.5-5.1)
[2016-11-23 10:43] LABS: CORTISOL 13.2 MCG/DL
[2016-11-23 10:58] LABS: RHEUMATOID FACTOR TRIGGER LESS THAN 10.0 IU/ML (0.0-14.9)
[2016-11-23 11:22] VITALS: BP 100/54; PULSE 69; RESP 20; TEMP 98.1; O2SAT 96
[2016-11-23 12:32] LABS: BLOOD, URINE NEG (NEG); COMMENT (UR) CULT NOT INDICATED; CULTURE IF INDICATED CULT NOT INDICATED; GLUCOSE,URINE NEG (NEG); HYALINE CAST, URINE 9 /lpf (RARE); KETONE, URINE NEG (NEG); NITRITE,URINE NEG (NEG); PH, URINE 5.5 (5.0-8.5); SQUAMOUS EPITHELIAL CELL URINE <1 /hpf (0-5); URIC ACID CRYSTALS, URINE FEW /hpf; URINE COLOR YELLOW (YELLW/STRAW)
[2016-11-23] MEDS ORDERED: POTASSIUM CHLORIDE 20 MEQ CONTROLLED RELEASE TAB PO ONE (13:00)
--- NOTE | 2016-11-23 13:09 | PD.CONS ---
[facility] Service Nephrology Consult Requested By Reason for Consult Acute Renal Failure Primary Care Physician No Primary Care Physician History of Present Illness This is a 26 y/o male patient. PMH of asthma and renal stones as a child. He started a new construction job approximately 2 weeks ago. Soon after starting he was at work and developed nausea/vomiting after eating. He thought it was due to excess heat exposure, and came to ER where he was found to be in renal failure. At that time his creatinine was 4.49 that improved to 0.86 with conservative management and IVF in one day. He was doing fine until yesterday where the situation had similar presentation. This morning after he did not feel better he came back to the ER. His Creatinine was 3.14 and has improved to 1.53. BUN was 44 is 33 today, and calcium was 10.7 improved to 8.78. His CK is 380. CBC showing hemoconcentration in WBC, H/H, both improved with IVF. Imaging is negative for obstruction, he is making urine but feels the amount has decreased. Urine toxicology positive only for marijuana. We were consulted for management. (Ny Quinones) Review of Systems Constitutional: COMPLAINS OF: Fatigue Eyes: DENIES: Blurred vision Gastrointestinal: COMPLAINS OF: Nausea, Vomiting, DENIES: Abdominal pain ( Ny Quinones) Past Family Social History Allergies: Coded Allergies: No Known Allergies (Verified , 11/22/16) Past Medical History Asthma Renal stones as a child. Past Surgical History None Reported Medications None Active Ordered Medications Current Medications Medications (Trade) Dose Ordered Sig/Loc Route Start Time Stop Time Status Last Admin Sodium Chloride 1,000 ml @ 125 mls/hr Q8H IV 11/23/16 02:56 11/23/16 12:37 (NS Flush) 2 ml UNSCH PRN IV FLUSH 11/23/16 03:00 (NS Flush) 2 ml BID IV FLUSH 11/23/16 09:00 (Zofran Inj) 4 mg Q6H PRN IVP 11/23/16 03:00 (Narcan Inj) 0.4 mg UNSCH PRN IV PUSH 11/23/16 03:00 Family History No hx of renal disorders Social History He lives with his mother Daily Smoker Denies ETOH, reports marijuana use full code works in construction independent (Ny Quinones Cm VARGAS) Physical Exam Vital Signs Vital Signs Date Time Temp Pulse Resp B/P (MAP) Pulse Ox O2 Delivery O2 Flow Rate FiO2 11/23/16 11:22 98.1 69 20 100/54 (69) 96 11/23/16 07:16 97.8 72 19 99/55 (70) 98 11/23/16 03:42 97.7 72 18 107/58 (74) 98 11/23/16 03:33 11/22/16 23:33 16 11/22/16 21:03 98.2 90 15 112/67 (82) 99 Room Air Physical Exam Young male, awake, alert oriented S1/S2, RRR Lungs clear Abdomen soft, non tender No edema to extremities Bladder not palpable Laboratory Laboratory Tests Test 11/22/16 23:30 11/23/16 09:45 11/23/16 09:47 11/23/16 11:55 White Blood Count 16.5 11.3 Red Blood Count 6.18 5.14 Hemoglobin 18.2 15.1 Hematocrit 53.6 44.8 Mean Corpuscular Volume 86.7 87.1 Mean Corpuscular Hemoglobin 29.4 29.4 Mean Corpuscular Hemoglobin Concent 33.9 33.8 Red Cell Distribution Width 13.1 13.3 Platelet Count 364 278 Mean Platelet Volume 9.0 8.5 Neutrophils (%) (Auto) 85.4 72.0 Lymphocytes (%) (Auto) 8.8 18.2 Monocytes (%) (Auto) 5.3 7.7 Eosinophils (%) (Auto) 0.1 1.6 Basophils (%) (Auto) 0.4 0.5 Neutrophils # (Auto) 14.1 8.2 Lymphocytes # (Auto) 1.5 2.1 Monocytes # (Auto) 0.9 0.9 Eosinophils # (Auto) 0.0 0.2 Basophils # (Auto) 0.1 0.1 CBC Comment DIFF FINAL DIFF FINAL Differential Comment Blood Urea Nitrogen 44 33 Creatinine 3.14 1.53 Random Glucose 125 65 Total Protein 9.5 Albumin 5.6 Calcium Level 10.7 8.7 Alkaline Phosphatase 73 Aspartate Amino Transf (AST/SGOT) 28 Alanine Aminotransferase (ALT/SGPT) 33 Total Bilirubin 0.8 Sodium Level 132 138 Potassium Level 4.7 3.4 Chloride Level 96 104 Carbon Dioxide Level 26.3 25.0 Anion Gap 10 9 Estimat Glomerular Filtration Rate 24 56 Total Creatine Kinase 380 Creatine Kinase MB 2.7 Creatine Kinase MB % 0.7 Lipase 86 Serum Osmolality 300 Random Cortisol 13.2 Rheumatoid Factor Screen NEGATIVE Rheumatoid Factor Titer Urine Color YELLOW Urine Turbidity CLEAR Urine pH 5.5 Urine Specific [place] 1.024 Urine Protein NEG Urine Glucose (UA) NEG Urine Ketones NEG Urine Occult Blood NEG Urine Nitrite NEG Urine Bilirubin NEG Urine Urobilinogen LESS THAN 2.0 Urine Leukocyte Esterase NEG Urine RBC LESS THAN 1 Urine WBC 1 Urine Squamous Epithelial Cells <1 Urine Uric Acid Crystals FEW Urine Hyaline Casts 9 Microscopic Urinalysis Comment CULT NOT INDICATED Urine Random Creatinine 189.3 Urine Random Sodium 23 Urine Opiates Screen NEG Urine Barbiturates Screen NEG Urine Amphetamines Screen NEG Urine Benzodiazepines Screen NEG Urine Cocaine Screen NEG Urine Cannabinoids Screen POS (Ny Quinones) Result Diagram: 11/23/16 0947 11/23/16 0947 Imaging Last 72 hours Impressions Abdomen/Pelvis CT 11/23/16 0130 Signed Impressions: Service Date/Time: Wednesday, November 23, 2016 01:46 - CONCLUSION: 1. No acute findings abdomen pelvic CT. No significant change from November 09. Kris Carbajal MD Renal Ultrasound 11/23/16 0000 Signed Impressions: Service Date/Time: Wednesday, November 23, 2016 10:04 - CONCLUSION: Negative for mass or hydronephrosis. Mildly echogenic kidneys suggesting chronic disease. Prominent prostate. Peter Workman MD FACR (Ny Quinones) Assessment and Plan Problem List: (1) Acute renal failure (ARF) ICD Codes: N17.9 - Acute kidney failure, unspecified Plan: Normal renal function at baseline UA is negative for protein and infection He is improving with IVF, continue NS and follow labs MAYELA likely due to acute dehydration, etiology may be heat induced but he also may not be hydrating during his work FeNa < 1% suggesting prerenal etiology Unlikely rhabdomyolysis as CK is only 300 This morning he is clinically improved replace potassium PO further management depending on above (Ny Quinones) Assessment and Plan patient was seen and examined. Renal function has improved. Likely he had pre- renal azotemia. He can be discharged from renal standpoint. We will sign off at this time. (Layton Junior MD) Ny Quinones Nov 23, 2016 13:09 Layton Junior MD Nov 23, 2016 16:49
--- NOTE | 2016-11-23 14:37 | HHI.PR ---
Subjective Remarks Follow-up for acute kidney injury. The patient is doing better today. He states that he had a lot of nausea which made him present yesterday, nausea has improved and he is tolerating oral intake. He reports good urine output. He states that he drinks a gallon or 2 of water at work per day and has a Gatorade with lunch, denies any dark beverages except on the weekends. Objective Vitals Vital Signs Date Time Temp Pulse Resp B/P (MAP) Pulse Ox O2 Delivery O2 Flow Rate FiO2 11/23/16 11:22 98.1 69 20 100/54 (69) 96 11/23/16 07:16 97.8 72 19 99/55 (70) 98 11/23/16 03:42 97.7 72 18 107/58 (74) 98 11/23/16 03:33 11/22/16 23:33 16 11/22/16 21:03 98.2 90 15 112/67 (82) 99 Room Air I/O 11/22/16 11/22/16 11/22/16 11/23/16 11/23/16 11/23/16 07:00 15:00 23:00 07:00 15:00 23:00 Intake Total 2000 ml 1000 ml Balance 2000 ml 1000 ml Intake IV Total 2000 ml 1000 ml Result Diagram: 11/23/16 0947 11/23/16 0947 Imaging Last Impressions Abdomen/Pelvis CT 11/23/16 0130 Signed Impressions: Service Date/Time: Wednesday, November 23, 2016 01:46 - CONCLUSION: 1. No acute findings abdomen pelvic CT. No significant change from November 09. Kris Carbajal MD Renal Ultrasound 11/23/16 0000 Signed Impressions: Service Date/Time: Wednesday, November 23, 2016 10:04 - CONCLUSION: Negative for mass or hydronephrosis. Mildly echogenic kidneys suggesting chronic disease. Prominent prostate. Peter Workman MD FACR Objective Remarks GENERAL: Well-developed well-nourished. In no acute distress. SKIN: Warm and dry. No lesions noted. HEENT: Normocephalic. Pupils equal and round. Mucous membranes pink and moist. CARDIOVASCULAR: Regular rate and rhythm. No murmur appreciated. RESPIRATORY: No accessory muscle use. Clear to auscultation. Breath sounds equal bilaterally. GASTROINTESTINAL: Abdomen soft, non-tender, nondistended. Bowel sounds x4. MUSCULOSKELETAL: No obvious deformities. No clubbing or cyanosis. No edema. NEUROLOGICAL: Awake and alert. Moves upper and lower extremities spontaneously. Normal speech. PSYCHIATRIC: Appropriate mood and affect; insight and judgment normal. A/P Assessment and Plan 26-year-old male admitted secondary to acute renal failure and rhabdomyolysis ( recurrent). Acute renal failure Dehydration Rhabdomyolysis, mild Recent admission for similar with worse rhabdomyolysis at that time. Rhabdomyolysis is currently mild with CPK 380. Recurrence may represent physiologic disturbance. -Checked Renal ultrasound showed no mass, hydronephrosis, mild echogenicity of kidneys suggesting chronic disease and prominent prostate. -Urinary and laboratory workup for autoimmunity and physiologic imbalance -Consulted nephrology, appreciate input -Continue aggressive IV hydration and follow renal function, currently improving History of asthma -Nebs if needed History of nephrolithiasis May represent predisposition to precipitation from physiologic disturbances -Workup as above DVT prophylaxis SCDs Discharge Planning Possible discharge tomorrow if patient continues to improve. Darius Lund Nov 23, 2016 14:37
[2016-11-23] MEDS ORDERED: ALBUTEROL SULFATE 90 MCG/ACT HFA 8 GM INHALER INH PRN (14:45)
[2016-11-23 15:41] VITALS: BP 90/51; PULSE 77; RESP 20; TEMP 98.1; O2SAT 98
[2016-11-23 17:30] VITALS: BP 103/64; PULSE 69; RESP 16; TEMP 96.6; O2SAT 97
[2016-11-23 20:00] VITALS: BP 101/55; PULSE 81; RESP 16; TEMP 96; O2SAT 98
--- NOTE | 2016-11-23 21:14 | HHI.HP ---
[facility] No Primary Care Physician Admission Diagnosis acute kidney injury. Dehydration. Gastroenteritis Diagnoses: (1) Acute renal failure (ARF) Diagnosis: Principal (2) Rhabdomyolysis Diagnosis: Principal (3) MAYELA (acute kidney injury) Diagnosis: Principal (4) Gastroenteritis Diagnosis: Principal Travel History International Travel<30 Days: No Contact w/Intl Traveler <30 Da: No Traveled to Known Affected Are: No History of Present Illness Mr. Keen is a 26-year-old male. He came into the ER secondary to hyperemesis and abdominal pain. He works construction, outdoors, in the heat. He has a previous episode 2 weeks ago with nausea and vomiting and pain which showed 2 renal failure and rhabdomyolysis. Similar pattern this time with evidence of acute renal failure and a more mild rhabdomyolysis. His baseline medical conditions are asthma and past kidney stone other than this he is healthy at baseline and complains of no symptoms when he is not working. However when he works out doors he he has had more mild episodes like this for he ends up getting abdominal pain and vomiting. No other complaints. He did not have episodes like this when he was a child. Review of Systems Constitutional: COMPLAINS OF: Diaphoretic episodes, DENIES: Fever, Chills, Night Sweats Eyes: DENIES: Blurred vision, Diplopia, Eye inflammation, Eye pain Ears, nose, mouth, throat: DENIES: Hearing loss, Vertigo, Throat pain Respiratory: DENIES: Apneas, Cough, Snoring, Wheezing, Shortness of breath Cardiovascular: DENIES: Chest pain, Palpitations, Syncope Gastrointestinal: COMPLAINS OF: Abdominal pain, Nausea, Vomiting, DENIES: Black stools, Bloody stools Musculoskeletal: DENIES: Joint pain, Stiffness, Back pain Integumentary: DENIES: Abnormal pigmentation, Nail changes, Pruritus, Rash Hematologic/lymphatic: DENIES: Bruising, Lymphadenopathy Immunologic/allergic: DENIES: Eczema, Urticaria Neurologic: DENIES: Abnormal gait, Headache, Localized weakness, Paresthesias Psychiatric: DENIES: Anxiety, Confusion, Depression Past Family Social History Past Medical History Asthma Hx of Nephrolithiasis Past Surgical History None Reported Medications Reported Meds & Active Scripts Active No Active Prescriptions or Reported Medications Allergies: Coded Allergies: No Known Allergies (Verified , 11/22/16) Active Ordered Medications Administered Medications Medications (Trade) Dose Ordered Sig/Loc Route PRN Reason Start Time Stop Time Status Last Admin Dose Admin Sodium Chloride 1,000 ml @ 125 mls/hr Q8H IV 11/23/16 02:56 11/23/16 20:55 Family History None reported Social History No smoking No alcohol abuse No illicit drug abuse Physical Exam Vital Signs Vital Signs Date Time Temp Pulse Resp B/P (MAP) Pulse Ox O2 Delivery O2 Flow Rate FiO2 11/23/16 20:00 96.0 81 16 101/55 (70) 98 11/23/16 17:30 96.6 69 16 103/64 (77) 97 11/23/16 15:41 98.1 77 20 90/51 (64) 98 11/23/16 11:22 98.1 69 20 100/54 (69) 96 11/23/16 07:16 97.8 72 19 99/55 (70) 98 11/23/16 03:42 97.7 72 18 107/58 (74) 98 11/23/16 03:33 11/22/16 23:33 16 Physical Exam GENERAL: NAD, A&Ox3 HEAD: Normocephalic. NECK: Supple, trachea midline. No lymphadenopathy. EYES: No scleral icterus. No injection or drainage. CARDIOVASCULAR: Regular rate and rhythm without murmurs, gallops, or rubs. RESPIRATORY: Breath sounds equal bilaterally. No accessory muscle use. GASTROINTESTINAL: Abdomen soft, non-tender, nondistended. MUSCULOSKELETAL: No cyanosis, or edema. SKIN: Warm and dry. NEURO: No focal neurological deficitis. Laboratory Laboratory Tests Test 11/22/16 23:30 11/23/16 09:45 11/23/16 09:47 11/23/16 11:55 White Blood Count 16.5 11.3 Red Blood Count 6.18 5.14 Hemoglobin 18.2 15.1 Hematocrit 53.6 44.8 Mean Corpuscular Volume 86.7 87.1 Mean Corpuscular Hemoglobin 29.4 29.4 Mean Corpuscular Hemoglobin Concent 33.9 33.8 Red Cell Distribution Width 13.1 13.3 Platelet Count 364 278 Mean Platelet Volume 9.0 8.5 Neutrophils (%) (Auto) 85.4 72.0 Lymphocytes (%) (Auto) 8.8 18.2 Monocytes (%) (Auto) 5.3 7.7 Eosinophils (%) (Auto) 0.1 1.6 Basophils (%) (Auto) 0.4 0.5 Neutrophils # (Auto) 14.1 8.2 Lymphocytes # (Auto) 1.5 2.1 Monocytes # (Auto) 0.9 0.9 Eosinophils # (Auto) 0.0 0.2 Basophils # (Auto) 0.1 0.1 CBC Comment DIFF FINAL DIFF FINAL Differential Comment Blood Urea Nitrogen 44 33 Creatinine 3.14 1.53 Random Glucose 125 65 Total Protein 9.5 Albumin 5.6 Calcium Level 10.7 8.7 Alkaline Phosphatase 73 Aspartate Amino Transf (AST/SGOT) 28 Alanine Aminotransferase (ALT/SGPT) 33 Total Bilirubin 0.8 Sodium Level 132 138 Potassium Level 4.7 3.4 Chloride Level 96 104 Carbon Dioxide Level 26.3 25.0 Anion Gap 10 9 Estimat Glomerular Filtration Rate 24 56 Total Creatine Kinase 380 Creatine Kinase MB 2.7 Creatine Kinase MB % 0.7 Lipase 86 Serum Osmolality 300 Random Cortisol 13.2 Rheumatoid Factor Screen NEGATIVE Rheumatoid Factor Titer Urine Color YELLOW Urine Turbidity CLEAR Urine pH 5.5 Urine Specific [place] 1.024 Urine Protein NEG Urine Glucose (UA) NEG Urine Ketones NEG Urine Occult Blood NEG Urine Nitrite NEG Urine Bilirubin NEG Urine Urobilinogen LESS THAN 2.0 Urine Leukocyte Esterase NEG Urine RBC LESS THAN 1 Urine WBC 1 Urine Squamous Epithelial Cells <1 Urine Uric Acid Crystals FEW Urine Hyaline Casts 9 Microscopic Urinalysis Comment CULT NOT INDICATED Urine Osmolality 801 Urine Random Creatinine 189.3 Urine Random Sodium 23 Urine Opiates Screen NEG Urine Barbiturates Screen NEG Urine Amphetamines Screen NEG Urine Benzodiazepines Screen NEG Urine Cocaine Screen NEG Urine Cannabinoids Screen POS Result Diagram: 11/23/1647 11/23/16946 Caprini VTE Risk Assessment Caprini VTE Risk Assessment: No/Low Risk (score <= 1) Caprini Risk Assessment Model Point Value = 1 Point Value = 2 Point Value = 3 Point Value = 5 Age 41-60 Minor surgery BMI > 25 kg/m2 Swollen legs Varicose veins or History of unexplained or recurrent spontaneous Oral contraceptives or hormone replacement Sepsis (< 1 month) Serious lung disease, including pneumonia (< 1 month) Abnormal pulmonary function Acute myocardial infarction Congestive heart failure (< 1 month) History of inflammatory bowel disease Medical patient at bed rest Age 61-74 Arthroscopic surgery Major open surgery (> 45 min) Laparoscopic surgery (> 45 min) Malignancy Confined to bed (> 72 hours) Immobilizing plaster cast Central venous access Age >= 75 History of VTE Family history of VTE Factor V Leiden Prothrombin [id number] Lupus anticoagulant Anticardiolipin antibodies Elevated serum homocysteine Heparin-induced thrombocytopenia Other congenital or acquired thrombophilia Stroke (< 1 month) Elective arthroplasty Hip, pelvis, or leg fracture Acute spinal cord injury (< 1 month) Prophylaxis Regimen Total Risk Factor Score Risk Level Prophylaxis Regimen 0-1 Low Early ambulation 2 Moderate Order ONE of the following: *Sequential Compression Device (SCD) *Heparin 5000 units SQ BID 3-4 Higher Order ONE of the following medications: *Heparin 5000 units SQ TID *Enoxaparin/Lovenox 40 mg SQ daily (WT < 150 kg, CrCl > 30 mL/min) *Enoxaparin/Lovenox 30 mg SQ daily (WT < 150 kg, CrCl > 10-29 mL/min) *Enoxaparin/Lovenox 30 mg SQ BID (WT < 150 kg, CrCl > 30 mL/min) AND/OR *Sequential Compression Device (SCD) 5 or more Highest Order ONE of the following medications: *Heparin 5000 units SQ TID (Preferred with Epidurals) *Enoxaparin/Lovenox 40 mg SQ daily (WT < 150 kg, CrCl > 30 mL/min) *Enoxaparin/Lovenox 30 mg SQ daily (WT < 150 kg, CrCl > 10-29 mL/min) *Enoxaparin/Lovenox 30 mg SQ BID (WT < 150 kg, CrCl > 30 mL/min) AND *Sequential Compression Device (SCD) Assessment and Plan Problem List: (1) Gastroenteritis ICD Code: K52.9 - Noninfective gastroenteritis and colitis, unspecified Status: Acute (2) MAYELA (acute kidney injury) ICD Code: N17.9 - Acute kidney failure, unspecified Status: Acute (3) Acute renal failure (ARF) ICD Code: N17.9 - Acute kidney failure, unspecified (4) Rhabdomyolysis ICD Code: M62.82 - Rhabdomyolysis Assessment and Plan Assessment and plan 26-year-old male admitted secondary to acute renal failure and rhabdomyolysis ( recurrent). Acute renal failure Dehydration Rhabdomyolysis This may represent physiologic disturbance Granulomatous findings on prior CT could be contributory Screen for autoimmunity Screen for physiologic imbalance Consult nephrology IV hydration Follow renal function Asthma No exacerbation History of nephrolithiasis May represent predisposition to precipitation from physiologic disturbances DVT prophylaxis SCDs Physician Certification 2 Midnight Certification Type: Admission for Inpatient Services Order for Inpatient Services The services are ordered in accordance with Medicare regulations or non- Medicare payer requirements, as applicable. In the case of services not specified as inpatient-only, they are appropriately provided as inpatient services in accordance with the 2-midnight benchmark. Estimated LOS (days): 2 days is the estimated time the patient will need to remain in the hospital, assuming treatment plan goals are met and no additional complications. Post-Hospital Plan: Home Emre Power MD Nov 23, 2016 21:14
[2016-11-24] VITALS: BP 99/59; PULSE 59; RESP 17; TEMP 97.3; O2SAT 97
[2016-11-24] MEDS: SODIUM CHLOR 0.9% 1000 ML INJ 1,000 ML IV SCH ×2 (02:45→09:15)
[2016-11-24 04:00] VITALS: BP 100/58; PULSE 67; RESP 16; TEMP 97.9; O2SAT 99
[2016-11-24 06:41] LABS: AUTOMATED NEUTROPHIL # 4.4 TH/MM3 (1.8-7.7); BASOPHIL % 0.5 % (0.0-2.0); EOSINOPHIL # 0.3 TH/MM3 (0-0.4); EOSINOPHIL % 4.3 % (0.0-4.0); HEMATOCRIT 43.8 % (39.0-51.0); HEMO FLAGS DIFF FINAL; LYMPH % 24.5 % (9.0-44.0); LYMPHOCYTE # 1.7 TH/MM3 (1.0-4.8); MEAN CELL VOLUME 87.9 FL (80.0-100.0); MEAN CORPUSCULAR HEMOGLOBIN 29.5 PG (27.0-34.0); MEAN CORPUSCULAR HGB CONC 33.5 % (32.0-36.0); MONO % 8.4 % (0.0-8.0); NEUT % 62.3 % (16.0-70.0); PLATELET COUNT 236 TH/MM3 (150-450); RED BLOOD COUNT 4.98 MIL/MM3 (4.50-5.90); RED CELL DISTRIBUTION WIDTH 13.3 % (11.6-17.2); WHITE BLOOD COUNT 7.1 TH/MM3 (4.0-11.0)
[2016-11-24 07:40] LABS: ALKALINE PHOSPHATASE 45 U/L (45-117); ALT (GPT) 21 U/L (12-78); ANION GAP 7 MEQ/L (5-15); AST (GOT) 16 U/L (15-37); BICARBONATE 25.1 MEQ/L (21.0-32.0); BLOOD UREA NITROGEN 19 MG/DL (7-18); CHLORIDE 109 MEQ/L (98-107); CREATINE KINASE 167 U/L (39-308); GLOMERULAR FILTRATION RATE 111 ML/MIN (>89); MAGNESIUM 2.1 MG/DL (1.5-2.5); POTASSIUM 4.6 MEQ/L (3.5-5.1); SODIUM (NA) 141 MEQ/L (136-145); TOTAL BILIRUBIN ADULT 0.5 MG/DL (0.2-1.0)
[2016-11-24 08:00] VITALS: BP 96/53; PULSE 73; RESP 18; TEMP 96.5; O2SAT 98
[2016-11-24] MEDS: SODIUM CHLORIDE 0.9% FLUSH 10 ML FLUSH IV FLUSH SCH (09:00)
--- NOTE | 2016-11-24 22:39 | HHI.DS ---
Discharge Summary Admission Date Nov 23, 2016 at 10:39 Discharge Date: Nov 24, 2016 Admitting Diagnosis acute kidney injury. Dehydration. Gastroenteritis (1) Gastroenteritis ICD Code: K52.9 - Noninfective gastroenteritis and colitis, unspecified Status: Acute (2) MAYELA (acute kidney injury) ICD Code: N17.9 - Acute kidney failure, unspecified Status: Acute (3) Acute renal failure (ARF) ICD Code: N17.9 - Acute kidney failure, unspecified (4) Rhabdomyolysis ICD Code: M62.82 - Rhabdomyolysis Procedures no invasive procedures. Brief History - From Admission Mr. Kene is a 26-year-old male. He came into the ER secondary to hyperemesis and abdominal pain. He works construction, outdoors, in the heat. He has a previous episode 2 weeks ago with nausea and vomiting and pain which showed 2 renal failure and rhabdomyolysis. Similar pattern this time with evidence of acute renal failure and a more mild rhabdomyolysis. His baseline medical conditions are asthma and past kidney stone other than this he is healthy at baseline and complains of no symptoms when he is not working. However when he works out doors he he has had more mild episodes like this for he ends up getting abdominal pain and vomiting. No other complaints. He did not have episodes like this when he was a child. CBC/BMP: 11/24/16 0552 11/24/16 0552 Significant Findings Laboratory Tests Test 11/22/16 23:30 11/23/16 09:45 11/23/16 09:47 11/23/16 11:55 White Blood Count 16.5 TH/MM3 (4.0-11.0) 11.3 TH/MM3 (4.0-11.0) Red Blood Count 6.18 MIL/MM3 (4.50-5.90) Hemoglobin 18.2 GM/DL (13.0-17.0) Hematocrit 53.6 % (39.0-51.0) Neutrophils (%) (Auto) 85.4 % (16.0-70.0) 72.0 % (16.0-70.0) Lymphocytes (%) (Auto) 8.8 % (9.0-44.0) Neutrophils # (Auto) 14.1 TH/MM3 (1.8-7.7) 8.2 TH/MM3 (1.8-7.7) Blood Urea Nitrogen 44 MG/DL (7-18) 33 MG/DL (7-18) Creatinine 3.14 MG/DL (0.60-1.30) 1.53 MG/DL (0.60-1.30) Random Glucose 125 MG/DL (74-106) 65 MG/DL (74-106) Total Protein 9.5 GM/DL (6.4-8.2) Albumin 5.6 GM/DL (3.4-5.0) Calcium Level 10.7 MG/DL (8.5-10.1) Sodium Level 132 MEQ/L (136-145) Chloride Level 96 MEQ/L (98-107) Estimat Glomerular Filtration Rate 24 ML/MIN (>89) 56 ML/MIN (>89) Total Creatine Kinase 380 U/L (39-308) Serum Osmolality 300 MOSM/KG (275-295) Potassium Level 3.4 MEQ/L (3.5-5.1) Urine Uric Acid Crystals FEW /hpf (NONE) Urine Cannabinoids Screen POS (NEG) Test 11/24/16 05:52 Monocytes (%) (Auto) 8.4 % (0.0-8.0) Eosinophils (%) (Auto) 4.3 % (0.0-4.0) Blood Urea Nitrogen 19 MG/DL (7-18) Total Protein 6.1 GM/DL (6.4-8.2) Calcium Level 8.4 MG/DL (8.5-10.1) Chloride Level 109 MEQ/L (98-107) Imaging Last Impressions Abdomen/Pelvis CT 11/23/16 0130 Signed Impressions: Service Date/Time: Wednesday, November 23, 2016 01:46 - CONCLUSION: 1. No acute findings abdomen pelvic CT. No significant change from November 09. Kris Carbajal MD Renal Ultrasound 11/23/16 0000 Signed Impressions: Service Date/Time: Wednesday, November 23, 2016 10:04 - CONCLUSION: Negative for mass or hydronephrosis. Mildly echogenic kidneys suggesting chronic disease. Prominent prostate. Peter Workman MD FACR PE at Discharge GENERAL: Well-developed well-nourished. In no acute distress. SKIN: Warm and dry. No lesions noted. HEENT: Normocephalic. Pupils equal and round. Mucous membranes pink and moist. CARDIOVASCULAR: Regular rate and rhythm. No murmur appreciated. RESPIRATORY: No accessory muscle use. Clear to auscultation. Breath sounds equal bilaterally. GASTROINTESTINAL: Abdomen soft, non-tender, nondistended. Bowel sounds x4. MUSCULOSKELETAL: No obvious deformities. No clubbing or cyanosis. No edema. NEUROLOGICAL: Awake and alert. Moves upper and lower extremities spontaneously. Normal speech. PSYCHIATRIC: Appropriate mood and affect; insight and judgment normal. Pt update on day of discharge Patient was seen this morning around 10 AM. Says he feels well. Denies any chest pain or shortness of breath. Denies any pain. Says she feels like going home. We discussed that it is not safe for him to continue construction work. Says he has talked to his mother. He says he will be seeking nonstrenuous, air- conditioned employment. Feels like going home. Hospital Course Patient presented in renal failure with creatinine 3.14. Renal ultrasound unremarkable. CK mildly elevated in the 380s, however has been markedly elevated in the past. Nephrology was consult at, and workup is pending at the time of discharge. Renal failure resolved with IV fluids. Patient was also found to be positive for marijuana and was counseled on cessation. There is possibility that patient has an inborn error of metabolism, or even porphyria. He should consider outpatient testing. Recommend follow-up with primary care. Patient will not be going back to his construction job. He will be seeking nonstrenuous, air-conditioned employment. For problem-based summary from most recent progress note, please see below. 26-year-old male admitted secondary to acute renal failure and rhabdomyolysis ( recurrent). //Acute renal failure Dehydration Rhabdomyolysis, mild Recent admission for similar with worse rhabdomyolysis at that time. Rhabdomyolysis is currently mild with CPK 380. Recurrence may represent physiologic disturbance. -Checked Renal ultrasound showed no mass, hydronephrosis, mild echogenicity of kidneys suggesting chronic disease and prominent prostate. -Urinary and laboratory workup for autoimmunity and physiologic imbalance -Consulted nephrology, appreciate input -Continue aggressive IV hydration and follow renal function, currently improving = Has resolved. Creatinine 0.8. There is possibility of inborn error metabolism, even porphyria. We discussed the importance of not missing meals, of avoiding strenuous labor. //History of asthma -Nebs if needed //History of nephrolithiasis May represent predisposition to precipitation from physiologic disturbances -Workup as above //DVT prophylaxis SCDs Pt Condition on Discharge: Good Discharge Disposition: Discharge Home Discharge Time: > 30 minutes Discharge Instructions DIET: Follow Instructions for: As Tolerated, No Restrictions Activities you can perform: Regular-No Restrictions, See Additionl Instruction Activities to Avoid: Strenuous Activity Other Activity Instructions: do not work outside during the day. stay hydrated. do not miss meals. Follow up Referrals: PCP Follow-up - 1 Week Ran Cooper MD Nov 24, 2016 22:39
[2016-12-01 23:52] LABS: ANTIDIURETIC HORMONE 1.7 pg/mL (1.0-13.3)
== END 2016-11-24 13:22 | disposition home or self-care (01) | DRG 683 ==
LOC: NEPC 20:55 → NEDA 11-23 02:29 → UNDOADMIN 11-23 02:29 → INTOOBSV 11-23 02:57 → NEDA 11-23 02:57 → NEPFCDU 11-23 03:33 → OBSVTOIN 11-23 10:39 → N06A 11-23 17:23
PROVIDERS: ADMIT Internal Medicine; ATTEND Internal Medicine
DX: N17.9 Acute kidney failure, unspecified (principal); M62.82 Rhabdomyolysis; E86.0 Dehydration; J45.909 Unspecified asthma, uncomplicated; K52.9 Noninfective gastroenteritis and colitis, unspecified; F17.210 Nicotine dependence, cigarettes, uncomplicated
CPT/HCPCS: 74176; 76775; 80048; 80053; 80307; 81001; 82024; 82088; 82533; 82550; 82552; 82570; 83690; 83735; 83930; 83935; 84244; 84300; 84588; 85025; 86038; 86430; 96361; 96374; 96375; J2405; J7030